=== PATIENT | male | born 1995 | race Caucasian/White ===

== ENCOUNTER 2021-11-06 22:00 | Observation (INO) | payer SELFPAY ==
[~2021-11-06] VITALS: Ht 175.3 cm; Wt 129.4 kg
--- NOTE | 2021-11-07 03:57 | NUR ---
PT TO FLOOR WITH [employer] AND [employer] RN FROM ED. ORDERS RECEIVED. PT ALERT AND ORIENTED. ABLE TO TRANSFER SELF TO BED. VSS. RA. IVF INFUSING WNL. PT REPORTS LUQ PAIN 04/03. PRN FOR PAIN ADMIN PER EMAR. PT DENIES NAUSEA. ORIENTATION TO ROOM AND NURSE CALL LIGHT GIVEN. PT STATES UNDERSTANDING. PT DENIES QUESTIONS OR CONCERS AT THIS TIME. CALL LIGHT IN REACH.
--- NOTE | 2021-11-07 04:20 | NUR ---
IV PUMP ALARMING. ISSUE RESOLVED. PT REPORTS ABD PAIN TOLERABLE 01/01. Sp02 96% ON RA. HR 70'S. NO NEEDS AT THIS TIME. CALL LIGHT IN REACH.
--- NOTE | 2021-11-07 08:30 | NUR ---
Dilaudid 1mg iv slow push admin for reports of 7/10 abdominal pain.
--- NOTE | 2021-11-07 09:12 | NUR ---
ABEBA from Dr. Myers for Phenergan 12.5mg IV Q6hr prn, zofran 4-8mg IV q6hr prn and dilaudid 0.3-1.5mg IV q2hr prn.
--- NOTE | 2021-11-07 10:24 | NUR ---
Patient resting in bed, eyes closed, respirations even and non labored. Patient has no distress. Personal supplies and call light within reach.
--- NOTE | 2021-11-07 10:31 | NUR ---
PT AWAKE IN BED WITH A HEADACHE. PT REQUESTING WATER AND PAIN MEDICINE. CALL LIGHT IN REACH. NNAMDI HAMMOND NOTIFIED. NO FURTHER NEEDS AT THIS TIME.
--- NOTE | 2021-11-07 10:56 | NUR ---
Patient provided with ice pack for reported headache. Patient denies nausea and states his abd pain is tolerable at this time.
--- NOTE | 2021-11-07 12:13 | NUR ---
Diladid 1mg ivp admin for reports of 7/10 abd pain.
--- NOTE | 2021-11-07 14:00 | NUR ---
PT SL FOR CT.
--- NOTE | 2021-11-07 14:11 | NUR ---
PT RESTING IN BED WITH EYES CLOSED. NO FURTHER NEEDS AT THIS TIME.
--- NOTE | 2021-11-07 14:23 | NUR ---
Dilaudid 1mg iv admin for reports of 8/10 abdominal pain.
--- NOTE | 2021-11-07 15:54 | CONS ---
[facility] [address], [place] [address] Signed DATE OF CONSULTATION: 11/07/2021 CHIEF COMPLAINT: Right lower lateral chest wall pain. HISTORY OF PRESENT ILLNESS: Dennis is a 26-year-old obese gentleman, who generally lives in [place], [place]. 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 He has developed right lower lateral chest wall pain. He said it is worse with deep breathing or movement. He came to emergency room last night for evaluation. There was actually some concern for more right lower quadrant abdominal pain with his history of Crohn disease. He said he has had COVID in the past. His white count is a little up at 11.4. CT scan of the abdomen and pelvis was unremarkable. He was admitted overnight and been on IV fluids. He said generally he feels better until he takes a deep breath or he moves and then the chest wall pain is exacerbated. He has no shortness of breath and he is able to talk in full sentences. He denies any trauma to that area. He has no arm or leg pain. PAST MEDICAL HISTORY: Crohn disease age 14, COVID and obesity. PAST SURGICAL HISTORY: None. SOCIAL HISTORY: He does smoke cigarettes and he vapes. He drinks a little alcohol. He generally uses the [facility] pharmacy. 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 Alejandra Shortell his mother at [phone] in [place], [place]. 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 FAMILY HISTORY: Maternal grandmother had Crohn disease. REVIEW OF SYSTEMS: He had 10 systems reviewed and there is nothing new to add. ALLERGIES: None. MEDICATIONS: None. PHYSICAL EXAMINATION: Electronically Signed By: NYA BEAL MD 11/07/21 1554 PATIENT NAME: DENNIS GALLARDO CONSULTATION DATE OF : [birth year] REPORT #: [id number] PHYSICIAN: NYA BEAL MD PCP: OTHER PCP REPORT IS CONFIDENTIAL AND NOT TO BE RELEASED WITHOUT AUTHORIZATION [facility] [address], [place] [address] Signed VITAL SIGNS: Blood pressure is 113/56, heart rate 77, respiratory rate 12, temperature is 98.7, he is 95% on room air. He is 5 feet 9 inches at 129 kg. GENERAL: Dennis is a 26-year-old gentleman, who does not appear systemically ill or toxic. He is lying supine in his hospital bed, watching TV. LUNGS: Generally clear to auscultation, but he clearly has decreased respiratory effort more so on the right than on the left. He points to the right lower lateral chest wall as his area of pain. He has no pain in his right mid quadrant or right lower quadrant of the abdomen. His respiratory excursion is decreased because of the pain. HEART: Regular rate and rhythm without murmurs. ABDOMEN: Obese, soft, nontender. LABORATORY DATA: His white blood count was 11.4, it is 9.1 this morning; hemoglobin 14, his platelets were 250. Electrolytes are unremarkable. BUN 10, creatinine 0.95. His sedimentation rate is 5, which is normal. His CRP is slightly up at 1.3, which is above 0.9. His COVID test is negative but he said he has had it in the past. His urinalysis was negative. Liver function tests were negative and lipase was negative. RADIOGRAPHIC STUDIES: A CT scan of the abdomen and pelvis was reviewed including the images in the report and that is negative. ASSESSMENT AND PLAN: Dennis is a 26-year-old obese gentleman, who actually has right lower lateral chest wall pain. 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 He has no pain or swelling in the legs or the arms. He has had COVID in the past. He also has Crohn disease. We are going to order a CT scan of his chest and we will evaluate that and we may need to get our hospitalist involved as well. Currently, it does not appear to be a surgical issue. He has expressed understanding and agrees with the above plan. Nya Beal MD ALB/MODL /[id number] cc: Nya Beal MD Electronically Signed By: NYA BEAL MD 11/07/21 1554 PATIENT NAME: DENNIS GALLARDO CONSULTATION DATE OF : [birth year] REPORT #: [id number] PHYSICIAN: NYA BEAL MD PCP: OTHER PCP REPORT IS CONFIDENTIAL AND NOT TO BE RELEASED WITHOUT AUTHORIZATION [address] [address] Signed Copies: NYA BEAL MD ~ Electronically Signed By: NYA BEAL MD 11/07/21 1554 PATIENT NAME: DENNIS GALLARDO CONSULTATION DATE OF : [birth year] REPORT #: [id number] PHYSICIAN: NYA BEAL MD PCP: OTHER PCP REPORT IS CONFIDENTIAL AND NOT TO BE RELEASED WITHOUT AUTHORIZATION
--- NOTE | 2021-11-07 17:31 | NUR ---
Two tabs [place] 5/325mg po admin for reports of 7/10 right rib pain. Patient denies nausea. Patient up to void at this time, q/s urine output.
--- NOTE | 2021-11-07 21:00 | NUR ---
PT CALLED, NEEDED BATHROOM, REMOVED SCD'S, INDEPENDENT UP TO THE BATHROOM. AWARE THAT HIS PRIMARY RN WILL BE IN AND WILL ATTACH SCD'S.
--- NOTE | 2021-11-08 01:01 | NUR ---
rESTING, EYES CLOSED, NO RESP DISTRESS, TURNS AND REPOSITIONED SELF. IVF INFUSING, CALL LIGHT AT HANDS REACH
--- NOTE | 2021-11-08 02:02 | NUR ---
pt up to br, voiding QS, on room air, c/o abd pain 8/10, medicated with norco 2 tabs. tolerating liquids well.
--- NOTE | 2021-11-08 03:42 | NUR ---
RESTING, EYES CLOSED,, NO DISTRESS, ON ROOM AIR, IVF INFUSING W/O PROBLEMS
--- NOTE | 2021-11-08 05:44 | NUR ---
PT HAS SLEPT OFF AND ON. ON ROOM AIR. HAS BEEN MEDICATED X2 PER C/O R SIDED FLANK AND ABD PAIN, EFFECTIVE. ABD SOFT, ANDREA. AMBULATES IN ROOM. VOIDING QS. IVF INFUSING W/O PROBLEMS. NO EMESIS, TOLERATING LIQUIDS WELL
--- NOTE | 2021-11-08 07:25 | NUR ---
report recieved from assembler seat RN, pt resting in bed, no needs at the moment
--- NOTE | 2021-11-08 08:15 | NUR ---
PT REFUSED TO SIT IN CHAIR. CALL LIGHT IS WITHIN REACH. WHITEBOARD UPDATED. NO FUTHER NEEDS AT THIS TIME.
--- NOTE | 2021-11-08 08:37 | NUR ---
RN in room to do morning assessment and medications,pt complaining of R chest wall pain 04/03, prn oxycodone provided, denies sob at the moment rr even and nonlabored, IV flushed denies any other needs
--- NOTE | 2021-11-08 10:47 | NUR ---
rn in room to round on pt, sleeping in bed, no needs
--- NOTE | 2021-11-08 11:10 | NUR ---
rn in room to administer medications, encourged pt to get up in halls and ambulate
--- NOTE | 2021-11-08 11:31 | NUR ---
MED REC COMPLETE
[2021-11-08] MEDS ORDERED: CYCLOBENZAPRINE5 MG PO (11:32)
--- NOTE | 2021-11-08 12:10 | NUR ---
CALLED TONE FROM PHARMACY IN REGARDS TO HOW SOON IT WILL BE SAFE TO DRIVE AFTER PO OXYCONDONE ADMINISTERED, TONE SAID 6 HOURS.
--- NOTE | 2021-11-08 12:47 | NUR ---
rn in room to round on pt, states pain is better and no longer has a headache, updated on plan of care
--- NOTE | 2021-11-08 13:30 | NUR ---
Spoke with Ted. He will dc today per Dr Myers. 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 He has family here. He is very vague and states he also has family in [place], but will not say where. States he will drive his pickup to family in town or stay in his rig. He does not want a follow up appt scheduled as he will not be back in [place]. States he cannot drive as he had pain pills this am. Per pharmacy he can drive in 6 hrs from last pain meds and can dc around 1 or 2. He denies other needs and plans on dc today. I let him know to go to an Urgent care if he has worsening problems.
--- NOTE | 2021-11-08 14:17 | NUR ---
PER RUIZ IN CASE MANAGEMENT, PT SAID HE IS LEAVING THIS AREA, HE DIES NOT PLAN TO COME BACK TO THIS AREA IN THE FUTURE. THIS IS IN REGARDS TO OFFERING ASSISTANCE TO SET PT UP WITH PCP FOR FOLLOW UP AND CHRONIC CARE OF CROHNS.
--- NOTE | 2021-11-08 14:40 | NUR ---
PT READY FOR DISCHARGE. PT REPORTS 7/10 PAIN. PT STATES HE DOES NOT WANT ANY ADDITIONAL INTERVENTIONS AND WOULD LIKE TO CONTINUE WITH DISCHARGE AT THIS TIME. VITAL SIGNS STABLE. IV DC'D PER PROTOCOL. GAUZE AND COBAN APPLIED. PT UP TO RESTROOM TO VOID AND THEN TO GET DRESSED. PT STEADY ON FEET. NO ASSISTANCE NEEDED. DISCHARGE INSTRUCTIONS INCLUDING NEED FOR FOLLOW UP WITH A PRIMARY CARE PROVIDER REVIEWED WITH PT. PT VERBALIZES UNDERSTANDING OF INSTRUCTIONS, MEDICATIONS AND FOLLOW UP. PT TRANSFERS SELF TO WHEELCHAIR. PT WHEELED FROM MED/SURGE. NO ADDITIONAL REQUESTS OR CONCERNS.
--- NOTE | 2021-11-09 06:24 | DS ---
[facility] [address], [place] [address] Signed ADMISSION DATE: 11/07/2021 DISCHARGE DATE: 11/08/2021 FINAL DIAGNOSIS: Right lateral chest wall pain. PROCEDURE: CT scan of the chest, abdomen, and pelvis. HISTORY OF PRESENT ILLNESS: Dennis is a 26-year-old gentleman, who generally lives in [place]. 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 He had developed rather significant pain in his right lateral chest wall. He came to the emergency room for evaluation. He ended up with a CT scan of the abdomen and pelvis and that was unremarkable. Laboratory work was unremarkable except the white count was a little up initially at 11.4. I had been asked to admit him as a general surgeon on-call. He also has a history of Crohn disease. HOSPITAL COURSE: Dennis was admitted as above and hydrated and provided pain medication. CRP was only slightly elevated at 1.3. His sedimentation rate was unremarkable at 5. He told me this is different than his Crohn's pain. He has not taken any medication for the Crohn's in quite some time. He said he has not seen any doctors in several years. We did do a CT scan of his chest to make sure he did not have a PE. That was unremarkable. We did ask our hospitalist service to see him as well. He was switched over to some Toradol along with ibuprofen and Flexeril and that seemed to be helping as much as anything else. He also says he gets headache sometimes in the back of his head. Otherwise, he is eating and tolerating diet and doing actually quite well. I explained to Dennis we have not elucidated any pain that we can help him with here in an acute care hospital. Consequently, we are going to be discharging him from the hospital. We have been discussing this with our sales planner and she is going to help find him a primary care provider here in [place], [place]. DISCHARGE PLANS AND MEDICATIONS: Dennis is going to be discharged to home with a prescription for Flexeril 5 mg tablets one tablet p.o. q.6 hours p.r.n. for muscle spasm and pain. We will dispense 20 tablets with no refills. He can purchase ibuprofen or Tylenol [id number] to be used as needed for pain. He can continue a regular diet at home. He can perform his activities of daily living including walking up and down stairs and showering and bathing as usual. He might consider taking a few days off work until the pain subsides. Our sales planner will be helping him find a primary care provider. He can follow up my office as Electronically Signed By: NYA MYERS MD 11/09/21 0624 PATIENT NAME: DENNIS GALLARDO DISCHARGE SUMMARY DATE OF : [birth year] REPORT #: [id number] PHYSICIAN: NYA MYERS MD PCP: OTHER PCP REPORT IS CONFIDENTIAL AND NOT TO BE RELEASED WITHOUT AUTHORIZATION [facility] [address], [place] [address] Signed needed. In addition, we have been trying to track down his records from [place] as well. He has expressed understanding and agrees with the above plan. Nya Myers MD ALB/MODL /[id number] cc: Nya Myers MD Copies: NYA MYERS MD ~ Electronically Signed By: NYA MYERS MD 11/09/21 0624 PATIENT NAME: DENNIS GALLARDO DISCHARGE SUMMARY DATE OF : [birth year] REPORT #: [id number] PHYSICIAN: NYA MYERS MD PCP: OTHER PCP REPORT IS CONFIDENTIAL AND NOT TO BE RELEASED WITHOUT AUTHORIZATION
== END 2021-11-08 14:45 | disposition home or self-care (01) ==
LOC: ED 22:00 → MS 22:01
PROVIDERS: ADMIT Colon & Rectal Surgery; ATTEND Colon & Rectal Surgery
DX: R07.89 Other chest pain (principal); E66.9 Obesity, unspecified; F17.210 Nicotine dependence, cigarettes, uncomplicated; F17.290 Nicotine dependence, other tobacco product, uncomplicated; Z20.822 Contact with and (suspected) exposure to COVID-19
CPT/HCPCS: 36415; 71260; 74177; 80048; 80053; 81001; 83690; 83735; 84100; 85025; 85651; 86140; 94760; 96372; 96375; 96376; 99285-25; 99406; C9113; C9803; G0378; J1170; J1650; J1885; J2405; J7030; J7121; Q9967; U0003